=== PATIENT | male | born 1955 | race Caucasian/White ===

== ENCOUNTER 2020-03-21 13:57 | Outpatient (CLI) | payer OTHER, SELFPAY ==
--- NOTE | ~2020-03-21 | CT_ITS ---
EXAMINATION:CT lung screening DATE: 03/21/2020 14:26 INDICATION: Personal history of tobacco dependence. Current smoker with 30 pack year history. TECHNIQUE: Computed tomography (CT) of the chest was performed without intravenous contrast. Automate d exposure control and iterative reconstruction technique were employed. The dose-length product (DLP ) was 175.39 mGy-cm. COMPARISON: Chest CT 08/26/2018 FINDINGS: There is mild emphysema. There is a 2 mm nodule in right upper lobe. There is a 2 mm nodule in left upper lobe. No pleural effusion. There is a chronic mildly enlarged right paratracheal lymph node, likely reactive. The heart size is normal. There are coronary artery calcifications. No perica rdial effusion. There is ectasia of ascending aorta measuring 4.3 cm. There are cysts in the liver me asuring up to 5.3 cm. There is mild chronic height loss of multiple thoracic vertebral bodies. There is moderate thoracic spondylosis. IMPRESSION: 1. Lung-RADS category 2: Benign appearance or behavior. Continue annual screening with noncontrast lo w-dose chest CT in 12 months. Reviewed, dictated and finalized at location A. IMPRESSION: 1. Lung-RADS category 2: Benign appearance or behavior. Continue annual screeni ng with noncontrast low-dose chest CT in 12 months.
== END 2020-03-21 13:58 | disposition home or self-care (01) ==
LOC: ANHIMG 14:01
PROVIDERS: PCP Family Medicine; Visit Provider Physician Assistant
DX: Z12.2 Encounter for screening for malignant neoplasm of respiratory organs (principal); Z87.891 Personal history of nicotine dependence
CPT/HCPCS: G0297

== ENCOUNTER 2020-05-02 08:48 | Outpatient (CLI) | payer OTHER, SELFPAY ==
--- NOTE | ~2020-05-02 | NM_ITS ---
EXAMINATION: NM bone scan whole body DATE: 05/02/2020 14:42 INDICATION: Prostate cancer TECHNIQUE: 23.6 mCi Tc-99m HDP was administered intravenously. Delayed whole-body scintigrams were o btained. COMPARISON: Chest CT dated 03/21/[address] abdomen and pelvis dated 05/02/2020 FINDINGS: There is horizontal band of increased uptake in the thoracic spine at the level of T5 which is withou t correlate on the relatively recent prior CT which does demonstrate a few compression fractures in t he more caudal thoracic spine which are likely chronic given the absence of corresponding uptake on b one scan. Likely degenerative mild joint centered uptake at the medial compartment of the right knee. No other suspicious foci of bone uptake to suggest metastatic disease. IMPRESSION: 1. Prominent uptake in the thoracic spine at the level of T5 without correlate on the relatively rece nt prior CT suggesting compression fracture new since 03/21/2020 2. No other suspicious bone lesions to suggest osseous metastatic disease. Reviewed, dictated and finalized at location B. IMPRESSION: 1. Prominent uptake in the thoracic spine at the level of T5 without correlate on the relatively recent prior CT suggesting compression fracture new since 03/07 2. No other suspicious bone lesions to suggest osseous metastatic disease.
--- NOTE | ~2020-05-02 | CT_ITS ---
EXAMINATION: CT abdomen pelvis w con DATE: 05/02/2020 09:26 INDICATION: Prostate cancer restaging TECHNIQUE: Computed tomography (CT) of the abdomen and pelvis was performed with 100 cc Omnipaque 350 intravenous contrast. Automated exposure control and iterative reconstruction technique were employe d. Exam dose: 628.74 mGy-cm total exam DLP. COMPARISON: 12/28/2004 CT abdomen FINDINGS: The lung bases are clear of infiltrate or consolidation. Normal heart size. No pericardial or pleural effusion. 11 mm and 5.5 cm left hepatic cysts. 2.1 cm right hepatic cyst. There is diffuse hepatic steatosis. No solid space-occupying mass lesion of the liver, spleen, pancreas, and adrenal glands or kidneys is detected. There is atherosclerotic calcification of the abdominal aorta, iliac and femoral arteries but no aneu rysm. No intraperitoneal or retroperitoneal or pelvic mass lesion or adenopathy or ascites. The urinary bladder is unremarkable. Status post prostatectomy and pelvic side wall lymph node dissec tion. Normal appendix. Mild left and right colonic diverticulosis; no CT evidence of diverticulitis. No bowel obstruction, b owel wall thickening, pneumatosis or intraperitoneal free air. There is moderate compression fracture deformity of L2 and T10. There is some coarsened sclerotic appearing trabeculae at the pubic symphysis bilaterally, extending into the inferior pubic rami. Differential diagnosis includes postoperative radiation change and less likely Paget's disease, osteosclerotic metastatic disease from prostate cancer. There is some sclerotic likely degenerative change at the sacroiliac joints. IMPRESSION: Status post prostatectomy; no metastatic disease is evident Hepatic steatosis Hepatic cysts Diverticulosis of the left and right colon; no CT evidence of diverticulitis Nonspecific coarsened sclerotic appearance at the pubic bones, possibly secondary to post-radiation c hange; the differential diagnosis includes less likely Paget's disease, osteosclerotic metastatic dis ease secondary to prostate cancer Reviewed, dictated and finalized at [facility] A. Reviewed, dictated and finalized at location A. IMPRESSION: Status post prostatectomy; no metastatic disease is evident Hepatic steatosis Hepatic cysts Diverticulosis of the left and right colon; no CT evidence of diverticulitis Nonspecific coarsened sclerotic appearance at the pubic bones, possibly seconda ry to post-radiation change; the differential diagnosis includes less likely Pa get's disease, osteosclerotic metastatic disease secondary to prostate cancer
[2020-05-02 09:16] LABS: Estimated Glomerular Filt Rate > 60
== END 2020-05-02 08:49 | disposition home or self-care (01) ==
PROVIDERS: PCP Family Medicine; Visit Provider Urology
DX: C61 Malignant neoplasm of prostate (principal); K76.0 Fatty (change of) liver, not elsewhere classified; K57.30 Diverticulosis of large intestine without perforation or abscess without bleeding
CPT/HCPCS: 74177; 78306; A9561; Q9967

== ENCOUNTER 2021-03-21 08:36 | Outpatient (CLI) | payer OTHER, SELFPAY ==
--- NOTE | ~2021-03-21 | CT_ITS ---
EXAMINATION: CT lung screening DATE: 03/21/2021 08:56 INDICATION: Personal history of tobacco dependence, current smoker with 30 pack year history, history of prostate cancer TECHNIQUE: Computed tomography (CT) of the chest was performed without intravenous contrast. The dose -length product (DLP) was 177.41 mGy-cm. Automated exposure control and iterative reconstruction tech [employer] were employed. COMPARISON: 03/21/2020 FINDINGS: There is a stable 2 mm nodule of the right upper lobe. No new pulmonary nodules are identif ied. There is mild emphysema. The lungs are free of acute opacities. There is no pleural effusion or pneumothorax. Chronically enlarged right paratracheal lymph node is unchanged and likely reactive. No pathologically enlarged thoracic lymph nodes are identified. The heart size is normal. Cysts of the liver measure up to 5.7 cm in the left hepatic lobe. There is a new sclerotic lesion in the T4 verteb ral body. Also seen is a new sclerotic lesion in the left fourth rib. IMPRESSION: 1. Lung-RADS category 2S: Benign appearance or behavior. Continue annual screening with noncontrast l ow-dose chest CT in 12 months. 2. New sclerotic lesions in the T4 vertebral body and left third rib concerning for metastatic diseas e given history of prostate cancer. Reviewed, dictated and finalized at location A. IMPRESSION: 1. Lung-RADS category 2S: Benign appearance or behavior. Continue annual screen ing with noncontrast low-dose chest CT in 12 months. 2. New sclerotic lesions in the T4 vertebral body and left third rib concerning for metastatic disease given history of prostate cancer.
== END 2021-03-21 08:37 | disposition home or self-care (01) ==
PROVIDERS: PCP Family Medicine; Visit Provider Family Medicine
DX: Z87.891 Personal history of nicotine dependence (principal); R91.8 Other nonspecific abnormal finding of lung field
CPT/HCPCS: 71271

== ENCOUNTER 2022-03-14 14:31 | Outpatient (CLI) | payer OTHER, SELFPAY ==
--- NOTE | ~2022-03-14 | CT_ITS ---
EXAMINATION: CT lung screening DATE: 03/14/2022 14:49 INDICATION: 30 pack year history TECHNIQUE: Computed tomography (CT) of the chest was performed without intravenous contrast. Addition al 3D reconstructions utilizing coronal maximum intensity projection (MIP) were performed. Automated exposure control and iterative reconstruction technique were employed. The dose-length product was 14 5.74 mGy-cm. COMPARISON: 03/21/2021 FINDINGS: Calcified left lower lobe nodule consistent with old granulomatous disease. Couple unchanged 2 mm non calcified right upper lobe nodules seen on series 4, image 73 and image 47. No new or enlarging pulmo nary nodules, pneumonia, pulmonary edema or other pulmonary infiltrates. No pleural effusion. Heart s ize is normal. Atherosclerotic coronary artery calcific lesion and aortic valve calcification. Aortic valve calcific calcifications. No pericardial effusion. Thoracic aorta is normal in caliber. No path ologically enlarged thoracic lymphadenopathy. A few tiny calcific lesions at the hilum at the upper p oles of both kidneys most likely atherosclerotic although nonobstructing nephrolithiasis is not exclu dable. 3 cysts in the visualized liver, the largest in the left hepatic lobe measuring 5.9 cm. No sig nificant change in sclerotic bone lesions at the T4 vertebral body and posterior left third rib most likely related to metastatic prostate cancer in this patient with known prostate cancer. No significa nt interval change in a few chronic mild compression fractures in the thoracic spine. IMPRESSION: 1. Lung-RADS category 2S: Benign appearance or behavior. Continue annual screening with noncontrast l ow-dose chest CT in 12 months. 2. No significant change in sclerotic lesions at T4 vertebral body and left third rib consistent with likely metastatic prostate cancer. Reviewed, dictated and finalized at location A. IMPRESSION: 1. Lung-RADS category 2S: Benign appearance or behavior. Continue annual screen ing with noncontrast low-dose chest CT in 12 months. 2. No significant change in sclerotic lesions at T4 vertebral body and left thi rd rib consistent with likely metastatic prostate cancer.
== END 2022-03-14 14:32 | disposition home or self-care (01) ==
PROVIDERS: PCP Family Medicine; Visit Provider Physician Assistant
DX: Z12.2 Encounter for screening for malignant neoplasm of respiratory organs (principal); Z87.891 Personal history of nicotine dependence
CPT/HCPCS: 71271

== ENCOUNTER 2022-05-20 07:30 | Outpatient (CLI) | payer OTHER, SELFPAY ==
[2022-05-25 20:03] LABS: Tissue Transglutaminase IgA Ab <1.0 U/mL (<15.0)
[2022-05-26 14:30] LABS: Tissue Transglutaminase IgG Ab <1.0 U/mL (<15.0)
== END 2022-05-20 07:31 | disposition home or self-care (01) ==
PROVIDERS: PCP Family Medicine; Visit Provider Nurse Practitioner Family
DX: R19.7 Diarrhea, unspecified (principal)
CPT/HCPCS: 36415; 83516

== ENCOUNTER 2022-06-26 01:15 | Day surgery (SDC) | payer OTHER, SELFPAY ==
[2022-06-12 14:56] VITALS: BMI 27.9
--- NOTE | 2022-06-25 14:29 | PM.HPGS ---
History of Present Illness History of Present Illness Consent: Risks, benefits, and alternatives have been discussed and questions answered. Patient agrees to proceed with procedure. Chief complaint: diarrhea Narrative: Prashanth Wood is a 66 year old male who is referred for evaluation of diarrhea.? He Reports diarrhea started after radiation therapy for his prostate cancer 16 years ago. Reports stools are watery in nature and in small amounts, sometimes up to 10 episodes a day with some urgency and a few accidents over the years. Diarrhea occurs approximately 30 minutes after eating especially onions. He denies any nocturnal symptoms.? He will have days with formed stools but are few and far between. Review of Systems Review of Systems: All systems reviewed & are unremarkable except as noted in HPI and below PMFSH Past Medical History Medical History Malignant neoplasm of prostate Surgical History Surgical History Status post rotator cuff repair (04/23/19) Family History Family History Father Hypertension Cerebrovascular accident Family history of malignant neoplasm Mother Family history of malignant neoplasm Sibling Malignant neoplasm of prostate Family history of lung cancer Family history of malignant neoplasm of esophagus Social History Social History Smoking packs per day: 1 Smoking cigarettes per day: 20.0 Smoking status: Current every day smoker Tobacco type: cigarettes Second hand tobacco smoke exposure: Yes Alcohol intake: current Alcohol use details: rarely Substance use: never Substance use type: does not use Living arrangements: with family Gender identity (if verbalized by the patient): Male Sexual Orientation (if Verbalized by the Patient): Straight or Heterosexual Spiritual care concerns: No Meds Home Medications and Allergies Home Medications Medication Instructions Recorded Confirmed Type bicalutamide 50 mg tablet 50 mg PO DAILY 10/03/20 06/26/22 History buprenorphine HCl 300 mcg buccal 300 mcg buccal Q12H 10/03/20 06/12/22 History film ([place]) hydrocodone 5 mg-acetaminophen 325 1 tablet PO Q8H PRN Pain 10/03/20 06/12/22 History mg tablet lisinopril 20 1 tablet PO DAILY #90 tabs 03/20/22 06/12/22 Rx mg-hydrochlorothiazide 25 mg tablet cholestyramine (with sugar) 4 gram 4 g PO DAILY #378 grams 05/16/22 06/12/22 Rx oral powder Allergies Allergy/AdvReac Type Severity Reaction Status Date / Time No Known Allergies Allergy Verified 06/26/22 09:11 Exam Const: General: alert Orientation/consciousness: patient oriented x3 Resp: Auscultation: clear to auscultation bilaterally Cardio: Rhythm: regular rhythm GI: GI Palp: Yes Soft to palpation and No Tenderness to palpation present (GI) Neuro: General: patient oriented x3 Assessment and Plan Assessment and plan (1) Chronic diarrhea: Code(s): K52.9 - Noninfective gastroenteritis and colitis, unspecified Status: Acute Assessment and Plan: Colonoscopy with possible biopsy or polypectomy or cautery or injection of substances.
[2022-06-26 09:12] VITALS: BP 117/67; PULSE 90; RESP 22; TEMP 36.2; O2SAT 100
[2022-06-26] MEDS: LACTATED RINGERS 1,000 ML 150 ML IV CONT (09:27)
--- NOTE | 2022-06-26 09:35 | WPDANESEPPF ---
Anes - Initial Pre Proc Eval Procedure: Operation Date: 06/26/22 10:30 Proposed Procedures p Colonoscopy - Dao Leach MD Date/Time: 06/26/22 09:35 Surgeon: Dao Leach MD Pre Op Diagnosis: diarrhea Patient Data Age: 66 Gender: M Height: 1.8 m Weight: 90.8 kg Last Vital Signs Temp 36.2 C L 06/26/22 09:12 Pulse 90 06/26/22 09:12 Resp 22 H 06/26/22 09:12 BP 117/67 06/26/22 09:12 Pulse Ox 100 06/26/22 09:12 O2 Del Method Room Air 06/26/22 09:12 Allergies Allergy/AdvReac Type Severity Reaction Status Date / Time No Known Allergies Allergy Verified 06/26/22 09:11 Home Medications Medication Instructions Recorded Confirmed Type bicalutamide 50 mg tablet 50 mg PO DAILY 10/03/20 06/26/22 History buprenorphine HCl 300 mcg buccal 300 mcg buccal Q12H 10/03/20 06/12/22 History film ([place]) hydrocodone 5 mg-acetaminophen 325 1 tablet PO Q8H PRN Pain 10/03/20 06/12/22 History mg tablet lisinopril 20 1 tablet PO DAILY #90 tabs 03/20/22 06/12/22 Rx mg-hydrochlorothiazide 25 mg tablet cholestyramine (with sugar) 4 gram 4 g PO DAILY #378 grams 05/16/22 06/12/22 Rx oral powder Patient hx anesthesia problems: none Family hx anesthesia problems: none Results Review: All pre-operative results and documents have been reviewed as part of the pre-operative evaluation. [facility] Past Medical History Medical History Malignant neoplasm of prostate Surgical History Surgical History Status post rotator cuff repair (04/23/19) Family History Family History Father Hypertension Cerebrovascular accident Family history of malignant neoplasm Mother Family history of malignant neoplasm Sibling Malignant neoplasm of prostate Family history of lung cancer Family history of malignant neoplasm of esophagus Social History Social History Smoking packs per day: 1 Smoking cigarettes per day: 20.0 Smoking status: Current every day smoker Tobacco type: cigarettes Second hand tobacco smoke exposure: Yes Alcohol intake: current Alcohol use details: rarely Substance use: never Substance use type: does not use Living arrangements: with family Gender identity (if verbalized by the patient): Male Sexual Orientation (if Verbalized by the Patient): Straight or Heterosexual Spiritual care concerns: No Anes - Eval Final PreProcedure Day of Procedure 06/26/22 09:35 Patient weight: overweight Heart: regular rate and rhythm Lungs: decreased breath sounds Airway: Mallampati scale class II Neurological: alert and oriented Last oral intake: >/= 8 hours ASA classification: III Emergent: no Anesthetic plan: proceed Anesthesia type and monitoring: general GIVS and standard monitoring Results Review: All pre-operative results and documents have been reviewed as part of the pre-operative evaluation. Informed Consent: The patient's anesthetic plan and its attendant risks and benefits were discussed with the patient/family/POA. Questions were solicited and answers provided to the satisfaction of the patient/family/POA.
[2022-06-26 10:50] VITALS: BP 90/50; PULSE 90; RESP 22; O2SAT 100
[2022-06-26 11:00] VITALS: BP 104/67; PULSE 77; RESP 22; O2SAT 100
== END 2022-06-26 11:20 | disposition home or self-care (01) ==
PROVIDERS: PCP Family Medicine; Visit Provider Internal Medicine Gastroenterology
PROC: 0DJD8ZZ Inspection of Lower Intestinal Tract, Via Natural or Artificial Opening Endoscopic (ICD-10-PCS; CPT 45378; principal; 2022-06-26 10:30)
DX: Z12.11 Encounter for screening for malignant neoplasm of colon (principal); K57.30 Diverticulosis of large intestine without perforation or abscess without bleeding; K64.8 Other hemorrhoids; R19.7 Diarrhea, unspecified; Z85.46 Personal history of malignant neoplasm of prostate; Z92.3 Personal history of irradiation; F17.210 Nicotine dependence, cigarettes, uncomplicated
CPT/HCPCS: 45380; 88305; J2704; J7120

== ENCOUNTER 2023-03-24 13:54 | Outpatient (CLI) | payer OTHER, SELFPAY ==
--- NOTE | ~2023-03-24 | CT_ITS ---
EXAMINATION: CT lung screening DATE: 03/24/2023 14:34 INDICATION: Current tobacco use TECHNIQUE: Computed tomography (CT) of the chest was performed without intravenous contrast. Addition al 3D reconstructions utilizing coronal maximum intensity projection (MIP) were performed. Automated exposure control and iterative reconstruction technique were employed. The dose-length product was 16 1.06 mGy-cm. COMPARISON: 03/14/2022 FINDINGS: Calcite nodule at the base of the left lower lobe consistent with old granulomatous disease. A few un changed pulmonary nodules measuring 2 mm in the right upper lobe on image 43 and 69, 2 mm in the left upper lobe on image 40 and 3 mm in the left upper lobe and on image 34. No new or enlarging pulmonar y nodules identified. No pneumonia, pulmonary edema or pleural effusion. Heart size is normal. Athero sclerotic coronary artery calcification. No pericardial effusion. Aortic valve calcification. Unchang ed mildly aneurysmal ascending thoracic aorta measuring up to 4.2 cm in maximal diameter. No patholog ically enlarged thoracic lymphadenopathy. Diffuse hepatic steatosis with 3 hepatic cysts the largest the left hepatic lobe measuring 6.2 cm. A few tiny calcifications at the hilum of the upper poles of both kidneys and severe atherosclerotic calcific lesions over nonobstructing nephrolithiasis. Unchang ed sclerotic lesions at the posterior aspect of the T4 vertebral body and at the posterior left third rib likely related to metastatic prostate cancer and this patient with known prostate cancer. No new lytic or sclerotic bone lesions identified. Stable appearance of a few chronic mild thoracic cordell ceci fractures. IMPRESSION: 1. Lung-RADS category 2S: Benign appearance or behavior. Continue annual screening with noncontrast l ow-dose chest CT in 12 months. 2. No significant change in sclerotic lesions at the T4 vertebral body and left third rib consistent with likely metastatic prostate cancer. Reviewed, dictated and finalized at location A. IMPRESSION: 1. Lung-RADS category 2S: Benign appearance or behavior. Continue annual screen ing with noncontrast low-dose chest CT in 12 months. 2. No significant change in sclerotic lesions at the T4 vertebral body and left third rib consistent with likely metastatic prostate cancer.
== END 2023-03-24 13:55 | disposition home or self-care (01) ==
PROVIDERS: PCP Family Medicine; Visit Provider Physician Assistant
DX: Z12.2 Encounter for screening for malignant neoplasm of respiratory organs (principal); F17.210 Nicotine dependence, cigarettes, uncomplicated
CPT/HCPCS: 71271

== ENCOUNTER 2024-04-28 10:52 | Outpatient (CLI) | payer MEDICARE, SELFPAY ==
--- NOTE | ~2024-04-28 | CT_ITS ---
EXAMINATION: CT lung screening DATE: 04/28/2024 11:09 INDICATION: Z87.891 - Personal history of nicotine dependence TECHNIQUE: Computed tomography (CT) of the chest was performed without intravenous contrast. Addition al 3D reconstructions utilizing coronal maximum intensity projection (MIP) were performed. Automated exposure control and iterative reconstruction technique were employed. The dose-length product was 16 8.56 mGy-cm. COMPARISON: 03/24/2023 FINDINGS: Minimal emphysema at the right apex. Calcified left lower lobe nodule consistent with old granulomato us disease. Unchanged 3 mm groundglass nodule in the left upper lobe on image 30, 2 mm nodule in the right upper lobe on image 69 and 2 mm nodule in the right upper lobe on image 37. No new or enlarging pulmonary nodules identified. No pneumonia, pulmonary edema or pleural effusion. Heart size is bee l. Atherosclerotic coronary artery calcification. No pericardial effusion. Aortic valve calcific loca tion. Unchanged mild aneurysmal ascending thoracic aorta measuring up to 4.2 cm in maximal diameter. No pathologically enlarged thoracic lymphadenopathy. 6.1 cm cyst in the left hepatic lobe and [address] in the right hepatic lobe. Unchanged small nonobstructing stones versus more likely atheroscleroti c calcifications at the bilateral renal yamini. Multiple unchanged mild compression fractures throughou t the thoracic spine. Again seen is a sclerotic lesion at T4 and at the posterolateral left third rib suspicious for metastatic disease in this patient with known prostate cancer. IMPRESSION: 1. Lung-RADS category 2: Benign appearance or behavior. Continue annual screening with noncontrast lo w-dose chest CT in 12 months. 2. No change in sclerotic lesions at the T4 vertebral body and left third rib suspicious for metastat ic prostate cancer. Reviewed, dictated and finalized at location A. IMPRESSION: 1. Lung-RADS category 2: Benign appearance or behavior. Continue annual screeni ng with noncontrast low-dose chest CT in 12 months. 2. No change in sclerotic lesions at the T4 vertebral body and left third rib s uspicious for metastatic prostate cancer.
== END 2024-04-28 10:53 | disposition home or self-care (01) ==
PROVIDERS: PCP Family Medicine; Visit Provider Physician Assistant Medical
DX: Z12.2 Encounter for screening for malignant neoplasm of respiratory organs (principal); Z87.891 Personal history of nicotine dependence
CPT/HCPCS: 71271

== ENCOUNTER 2025-06-08 07:19 | Outpatient (CLI) | payer MEDICARE, SELFPAY ==
--- NOTE | ~2025-06-08 | CT_ITS ---
EXAMINATION:CT lung screening DATE: 06/08/2025 07:45 INDICATION: Personal history of nicotine dependence. TECHNIQUE: Computed tomography (CT) of the chest was performed without intravenous contrast. Automated exposure control and iterative reconstruction technique were employed. The dose-length product (DLP) was 153.01 mGy-cm. COMPARISON: Chest CT 04/28/2024, 08/26/2018 FINDINGS: There is mild emphysema. There is a 3 mm nodule in right upper lobe. There is a 2 mm nodule in right upper lobe. A calcified left lung nodule is consistent with old granulomatous disease. No pleural effusion. The heart size is normal. There are coronary artery calcifications. No pericardial effusion. There is diffuse hepatic steatosis. There are cysts in the liver measuring up to 5.5 cm. There are mild chronic compression fractures of multiple vertebral bodies. There is a sclerotic lesion in T4 vertebral body. There is a sclerotic lesion in left third rib. IMPRESSION: 1. Lung-RADS category 2S: Benign appearance or behavior. Continue annual screening with noncontrast low-dose chest CT in 12 months. 2. Stable sclerotic lesions in T4 vertebral body and left third rib, consistent with metastatic prostate cancer. Reviewed, dictated and finalized at location E. PUMPER IMPRESSION: 1. Lung-RADS category 2S: Benign appearance or behavior. Continue annual screen ing with noncontrast low-dose chest CT in 12 months. 2. Stable sclerotic lesions in T4 vertebral body and left third rib, consistent with metastatic prostate cancer.
== END 2025-06-08 07:20 | disposition home or self-care (01) ==
PROVIDERS: PCP Family Medicine
DX: Z12.2 Encounter for screening for malignant neoplasm of respiratory organs (principal); Z87.891 Personal history of nicotine dependence
CPT/HCPCS: 71271

== ENCOUNTER 2025-06-10 08:56 | Outpatient (CLI) | payer MEDICARE, SELFPAY ==
--- NOTE | ~2025-06-10 | US_ITS ---
EXAMINATION: US aorta [facility] scrn, 06/10/2025 9:15 GLOVE SEWER HISTORY: Z72.0 - Tobacco use Comparison: None Technique: Liao-scale and color Doppler images were obtained. Findings: There are atherosclerotic changes of the aorta but no aneurysm identified, the proximal common iliac arteries are unremarkable IMPRESSION: No aneurysm is identified Reviewed, dictated and finalized at location P. E SEWER IMPRESSION: No aneurysm is identified
== END 2025-06-10 08:57 | disposition home or self-care (01) ==
PROVIDERS: PCP Family Medicine
DX: Z13.6 Encounter for screening for cardiovascular disorders (principal); Z72.0 Tobacco use
CPT/HCPCS: 76706